=== PATIENT | male | born 1945 | race Caucasian/White ===

== ENCOUNTER 2019-12-27 13:29 | Observation (INO) ==
[2019-12-27] MEDS ORDERED: CeFAZolin Syr 2,000MG/20 ML 2,000 MG/20 ML SYRINGE IVPB ONE (13:58)
[2019-12-27] MEDS ORDERED: Ringers Solution, Lactated 1,000 ML IVC SCH (14:00)
[2019-12-27] MEDS ORDERED: Isovue-300 50ML VIAL ONE (15:07)
[2019-12-27] MEDS ORDERED: Ondansetron 4 MG/2 ML VIAL ONE (15:47)
[2019-12-27] MEDS ORDERED: *HR* FentaNYL (PF) 100 MCG/2 ML VIAL ONE (15:47)
[2019-12-27] MEDS ORDERED: *HR* Propofol 200 MG/20 ML VIAL IVP ONE (15:47)
[2019-12-27] MEDS ORDERED: Lidocaine -MPF 2% 2 ML VIAL ONE (15:47)
[2019-12-27] MEDS ORDERED: EPHEDrine 50 MG/ML VIAL ONE (16:56)
[2019-12-27] MEDS ORDERED: Dextrose Gel 15 GM/37.5 ML TUBE PO PRN ×2 (19:55)
[2019-12-27] MEDS ORDERED: *HR* OxyCODONE/APAP 5/325 TABLET PO PRN (19:55)
[2019-12-27] MEDS ORDERED: Naloxone 0.4 MG/ML INJ IVP PRN (19:55)
[2019-12-27] MEDS ORDERED: *HR* Dextrose 50 % in Water (Syg) 50 ML SYRINGE IVP PRN (19:55)
[2019-12-27] MEDS ORDERED: Acetaminophen 325 MG TABLET PO PRN (19:55)
[2019-12-27] MEDS ORDERED: Ondansetron 4 MG/2 ML VIAL IVP PRN (19:55)
[2019-12-27] MEDS ORDERED: D5% in Water 1,000 ML IVC PRN (19:55)
[2019-12-27] MEDS: *HR* Metformin 500 MG TABLET PO SCH (20:24)
[2019-12-27] MEDS: 0.9 % Sodium Chloride 1,000 ML IVC SCH (20:24)
[2019-12-28] MEDS: 0.9 % Sodium Chloride 1,000 ML IVC SCH (04:30)
[2019-12-28 06:32] LABS: Basophils % 0.5 %; Eosinophils # 0.1 K/mcL (0.0-0.6); Eosinophils % 1.7 %; Hematocrit 35.7 % (37.5-50.1); Immature Granulocytes % 0.3 % (0-4); Lymphocytes # 1.3 K/mcL (0.6-4.6); Lymphocytes % 20.8 %; Mean Corpuscular HGB Conc 33.3 g/dL (31.6-35.5); Mean Corpuscular Hemoglobin 30.1 pg (28.0-33.3); Mean Corpuscular Volume 90.2 fL (83.0-100.0); Mean Platelet Volume 10.8 fL (9.4-12.4); Monocytes # 0.6 K/mcL (0.0-1.3); Monocytes % 9.3 %; Neutrophils # 4.3 K/mcL (1.6-8.9); Platelet Count 178 K/mcL (140-400); Red Blood Count 3.96 M/mcL (4.19-5.50); Red Cell Distribution Width 12.2 % (11.5-14.5); Segmented Neutrophils % 67.4 %; White Blood Count 6.4 K/mcL (4.3-11.1)
[2019-12-28 06:43] LABS: Hemoglobin 11.9 g/dL (12.9-16.9)
[2019-12-28 06:47] LABS: Calcium 8.3 mg/dL (8.6-10.3); Potassium 4.1 mEq/L (3.5-5.1)
[2019-12-28] MEDS ORDERED: Insulin LISPRO 300 UNITS/3 ML VIAL SQ SCH (07:30)
[2019-12-28 07:38] VITALS: BP 158/88
[2019-12-28] MEDS: *HR* Metformin 500 MG TABLET PO SCH (07:57)
[2019-12-28] MEDS ORDERED: cefTRIAXone 1,000 MG in Water for inj. (sterile) 10 ML IVP SCH (09:00)
== END 2019-12-28 10:38 | disposition home or self-care (01) ==
LOC: SAMDAY 13:29 → 3BNU 13:29
PROVIDERS: ADMIT Urology; ATTEND Urology